=== PATIENT | male | born 1990 | race Caucasian/White ===

== ENCOUNTER 2016-08-10 22:41 | Emergency (ER) | payer MEDICAID ==
[~2016-08-10] VITALS: Ht 170.2 cm; Wt 84.1 kg
[2016-08-10 23:04] VITALS: BP 123/73
--- NOTE | 2016-08-10 23:59 | NUR ---
PT TAKEN TO BED 7
--- NOTE | 2016-08-11 00:15 | NUR ---
PATIENT PRESENTS TO ED WITH C/O LEFT EYE PAIN. FEELS LIKE SOMETHING IS IN IT. PT DENIES N/V/D; SKIN IS PINK/WARM/DRY; AAOX4 WITH EVEN AND STEADY GAIT; LUNGS CLEAR BL; HR EVEN AND REGULAR; PT DENIES ANY FEVER, CP, SOB, OR COUGH AT THIS TIME; PATIENT STATES PAIN OF 8/10 AT THIS TIME; VSS; PATIENT POSITIONED FOR COMFORT; HOB ELEVATED; BEDRAILS UP X2; BED DOWN. ER MD MADE AWARE OF PT STATUS.
[2016-08-11] MEDS ORDERED: TETRACAINE 0.5% OPTH SOL 2 ML BTL OP ONE (00:30)
[2016-08-11] MEDS ORDERED: FLUORESCEIN OPTH STRIP 1 MG OP ONE (00:30)
--- NOTE | 2016-08-11 00:56 | NUR ---
Dr. Watkins evaluating patient at bedside.
[2016-08-11] MEDS ORDERED: ACETAMINOPHEN/CODEINE 300/30MG 1 TAB PO ONE (01:05)
--- NOTE | 2016-08-11 01:53 | NUR ---
Patient discharged with v/s stable. Written and verbal after care instructions given and explained. Patient alert, oriented and verbalized understanding of instructions. Ambulatory with steady gait. All questions addressed prior to discharge. ID band removed. Patient advised to follow up with PMD. Rx of TORBRAMYCIN OINTMENT AND TYLENOL WITH CODEINE given. Patient educated on indication of medication including possible reaction and side effects. Opportunity to ask questions provided and answered.
[2016-08-11 01:54] VITALS: BP 120/85
== END 2016-08-11 01:53 | disposition home or self-care (01) ==
LOC: MED 22:41
DX: S05.02XA Injury of conjunctiva and corneal abrasion without foreign body, left eye, initial encounter (principal); E78.00 Pure hypercholesterolemia, unspecified; X58.XXXA Exposure to other specified factors, initial encounter; Y93.89 Activity, other specified; Y92.89 Other specified places as the place of occurrence of the external cause; Y99.8 Other external cause status
CPT/HCPCS: 99284

== ENCOUNTER 2018-01-06 01:20 | Emergency (ER) | payer MEDICAID ==
[~2018-01-06] VITALS: Ht 170.2 cm; Wt 79.4 kg
[2018-01-06 01:27] VITALS: BP 132/98
--- NOTE | 2018-01-06 01:30 | NUR ---
PT AMBULATED TO ED BED 11
--- NOTE | 2018-01-06 01:30 | NUR ---
PT PRESENTS TO ED WITH LEFT EYE PAIN AND CLEAR DRAINAGE X3 DAYS. PT STATES BURNING PAIN. VISION IN LEFT EYE INTACT AT 20/25. PT DENIES WEARIN VISION AID. 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 PT DENIES MEDICAL HX. 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 VSS. A&OX4. POSITIONED IN BED FOR COMFORT. ER MD AWARE. CONTINUE TO MONITOR.
[2018-01-06] MEDS ORDERED: FLUORESCEIN OPTH STRIP 0.6 MG OP ONE (02:00)
[2018-01-06] MEDS ORDERED: TETRACAINE HCL/PF 0.5% OPTH 4 ML BTL OP ONE (02:00)
[2018-01-06] MEDS ORDERED: ACETAMINOPHEN/CODEINE 300/30MG 1 TAB PO ONE (02:30)
[2018-01-06] MEDS ORDERED: KETOROLAC 30 MG/ML VIAL IM ONE (02:30)
[2018-01-06 03:02] VITALS: BP 137/79
--- NOTE | 2018-01-06 03:02 | NUR ---
Patient discharged with v/s stable. Written and verbal after care instructions given and explained. Patient alert, oriented and verbalized understanding of instructions. Ambulatory with steady gait. All questions addressed prior to discharge. ID band removed. Patient advised to follow up with PMD. Rx of TOBRAMYCIN OPHTHALMIC SOLUTION, NAPROSYN given. Patient educated on indication of medication including possible reaction and side effects. Opportunity to ask questions provided and answered.
== END 2018-01-06 03:01 | disposition home or self-care (01) ==
LOC: MED 01:20
DX: H10.32 Unspecified acute conjunctivitis, left eye (principal)
CPT/HCPCS: 96372; 99284; J1885